=== PATIENT | female | born 1950 | race Hispanic/Latino ===

== ENCOUNTER 2022-02-06 07:18 | Outpatient (CLI) | payer MEDICARE ==
[2022-02-06 08:19] LABS: Hemoglobin 13.9 g/dL (12.0-15.5); Mean Corpuscular HGB CONC 33.6 g/dL (32.0-36.0); Mean Corpuscular Hemoglobin 30.9 pg (27.0-33.0); Mean Platelet Volume 10.1 fl (7.4-10.4); Platelet Count 298 10x3/uL (150-450); RBC Distribution Width 12.1 % (11.5-14.5)
[2022-02-06 08:36] LABS: PTT 30.6 sec (22.0-33.0); Prothrombin Time 10.5 sec (9.5-12.1)
[2022-02-06 09:07] LABS: ALT (SGPT) 19 U/L (8-55); AST (SGOT) 17 U/L (5-34); Albumin 4.2 g/dL (3.4-4.8); Alkaline Phosphatase 99 U/L (40-110); Anion Gap 14 mmol/L (10-20); BUN (Urea Nitrogen) 15 mg/dL (9.8-20.1); Calc. Creatinine Clearance 0 mL/min (70-130); Calcium 9.2 mg/dL (7.8-10.44); Carbon Dioxide 23 mmol/L (23-31); Chloride 106 mmol/L (98-107); Globulin 2.8 g/dL (2.4-3.5); Glucose 116 mg/dL (80-115); Potassium 4.3 mmol/L (3.5-5.1); Sodium 139 mmol/L (136-145)
== END 2022-02-06 07:19 | disposition home or self-care (01) ==
LOC: CSHLAB 07:18
PROVIDERS: ATTEND Specialist
DX: Z01.812 Encounter for preprocedural laboratory examination (principal); Z20.822 Contact with and (suspected) exposure to COVID-19; I48.91 Unspecified atrial fibrillation
CPT/HCPCS: 80053; 83735; 85027; 85610; 85730; U0003; U0005

== ENCOUNTER → 2022-02-07 | Day surgery (SDC) | payer MEDICARE ==
[2022-02-07 12:29] VITALS: TEMP 98.4
== END | disposition home or self-care (01) ==
LOC: CSHSDC 09:07
PROVIDERS: ATTEND Specialist
PROC: 5A2204Z Restoration of Cardiac Rhythm, Single (ICD-10-PCS; principal; 2022-02-07)
DX: I48.19 Other persistent atrial fibrillation (principal); E78.2 Mixed hyperlipidemia; I10 Essential (primary) hypertension; M19.90 Unspecified osteoarthritis, unspecified site; E66.9 Obesity, unspecified; Z68.39 Body mass index [BMI] 39.0-39.9, adult; Z79.01 Long term (current) use of anticoagulants; Z79.899 Other long term (current) drug therapy; Z91.013 Allergy to seafood
CPT/HCPCS: 92960; 93005; 93010

== ENCOUNTER → 2022-07-04 | Day surgery (SDC) | payer MEDICARE ==
[~2022-07-04] MED LIST: PROPOFOL 20 ML ONE
== END ==
LOC: CSHSDC 10:11
PROVIDERS: ATTEND Specialist
DX: I48.19 Other persistent atrial fibrillation (principal); I10 Essential (primary) hypertension; E78.2 Mixed hyperlipidemia; M19.90 Unspecified osteoarthritis, unspecified site; E66.9 Obesity, unspecified; Z98.890 Other specified postprocedural states; Z79.899 Other long term (current) drug therapy
CPT/HCPCS: 92960; 93005; 93010; J2704

== ENCOUNTER 2024-03-25 13:22 | Day surgery (SDC) | payer MEDICARE ==
[2024-03-25] MEDS ORDERED: Lidocaine Viscous Sol 2% 15 ml UD Cup ONE (14:21)
[2024-03-25] MEDS ORDERED: PROPOFOL 20 ML ONE (14:23)
[2024-03-25] MEDS ORDERED: Lidocaine 1% PF 5 ML VIAL ONE (14:23)
[2024-03-25 14:25] LABS: PTT 28.6 sec (22.0-33.0); Prothrombin Time 10.6 sec (9.5-12.1)
[2024-03-25 14:44] VITALS: BP 129/72; TEMP 97.8
== END 2024-03-25 15:48 | disposition home or self-care (01) ==
LOC: CSHSDC 13:22
PROVIDERS: ATTEND Specialist
PROC: B246ZZ4 Ultrasonography of Right and Left Heart, Transesophageal (ICD-10-PCS; principal; 2024-03-25)
DX: I48.19 Other persistent atrial fibrillation (principal); I48.92 Unspecified atrial flutter; E78.2 Mixed hyperlipidemia; I10 Essential (primary) hypertension; E66.9 Obesity, unspecified; M19.90 Unspecified osteoarthritis, unspecified site; Z90.710 Acquired absence of both cervix and uterus; Z98.890 Other specified postprocedural states; Z68.35 Body mass index [BMI] 35.0-35.9, adult; Z91.013 Allergy to seafood; Z88.8 Allergy status to other drugs, medicaments and biological substances; Z86.16 Personal history of COVID-19; Z79.01 Long term (current) use of anticoagulants; Z79.899 Other long term (current) drug therapy
CPT/HCPCS: 85610; 85730; 93312; J2704